=== PATIENT | female | born 1985 | race Caucasian/White ===

== ENCOUNTER 2024-08-07 21:22 | Emergency (ER) | payer SELFPAY ==
[2024-08-07] MEDS ORDERED: methylPREDNISolone Sod Succ/PF 125 MG/2 ML VIAL ONE (21:42)
[2024-08-07] MEDS ORDERED: Cyclobenzaprine 10 MG TAB ONE (22:09)
== END 2024-08-07 22:22 | disposition home or self-care (01) ==
LOC: NAV ERS 21:22
DX: M54.31 Sciatica, right side (principal); F17.210 Nicotine dependence, cigarettes, uncomplicated; V89.9XXA Person injured in unspecified vehicle accident, initial encounter
CPT/HCPCS: 96372; 99283; J2919